=== PATIENT | male | born 1970 | race Caucasian/White ===

== ENCOUNTER 2020-08-11 17:00 | Inpatient (IN) | payer MEDICARE, SELFPAY ==
[2020-08-11 17:03] VITALS: BP 192/121; PULSE 80; RESP 18; TEMP 36.5; O2SAT 97; BMI 34.0
--- NOTE | 2020-08-11 17:36 | ED_ITS ---
Documented by User: JORGE Bang 08/12/20 01:48 HPI - Psych General: Chief Complaint: Psychiatric Symptoms Stated Complaint: AMS Time Seen by Provider: 08/11/20 17:21 History of Present Illness: HPI Narrative: Patient is a 50-year-old male who comes to the ED with SI. Patient does not have any history of psychiatric disorder or on any psych meds. He says for the past month he has been hearing and seeing things. He says that people he knows around town say that he is a child molester. He now hears voices telling him that he is a child molester. He also says he sees people that are not there. Endorses not sleeping much recently and not having a lot of energy and motivation throughout the day. He states he has been distant from his family because he is worried that he skin a snap and being mean. Denies HI. He says that he is now thinking of suicide who has thought about crashing her car at high-speed and potentially getting a gun and shooting himself. Patient says he wants these thoughts to go away any needs help. Family history?mother?schizophrenia. Associated symptoms: Reports auditory hallucinations, visual hallucinations, depression and suicidal ideation; Deny homicidal ideation Review of Systems Const: Denies: fever(s), chills or fatigue Eyes: Denies: change in vision or eye discomfort ENMT: Denies: throat pain, odynophagia, nasal discharge or nasal congestion Card: Denies: chest pain, palpitations, edema, swelling of feet/ankles, dyspnea on exertion or orthopnea Resp: Denies: dyspnea, productive cough or non-productive cough GI: Denies: abdominal pain, nausea, vomiting, diarrhea, constipation or hematochezia : Denies: flank pain, difficulty urinating, dysuria or hematuria Musc: Denies: neck pain, back pain or extremity swelling Skin/Breast: Denies: rash or new lesions Neuro: Denies: headache(s), numbness in extremities or weakness in extremities Psych: Reports: depression, sleeping less, irritability, visual hallucinations, auditory hallucinations and suicidal ideation; Denies: homicidal ideation Physical Exam Const: COMMON NORMALS: patient oriented x3 and alert GENERAL APPEARANCE: cooperative and comfortable HENMT: COMMON NORMALS: normocephalic HEAD & SCALP: normocephalic MOUTH: Normal oral and palatal mucosa present THROAT: posterior oropharynx normal and uvula midline Eye: COMMON NORMALS: Equal, round and reactive pupils present PUPIL: Yes Equal, round and reactive pupils present Neck/C-Spine: COMMON NORMALS: supple GENERAL: Yes normal visual inspection Resp: COMMON NORMALS: normal respiratory effort, No retractions, No use of accessory muscles and clear to auscultation bilaterally EFFORT & INSPECTION: No tachypneic and No respiratory distress AUSCULTATION: clear to auscultation bilaterally and wheezes expiratory wheezes and throughout Cardio: COMMON NORMALS: regular rate, regular rhythm, S1 normal heart sound present, S2 normal heart sound present, No gallops present (Cardio), No clicks present (Cardio), No murmurs present (Cardio) and Peripheral pulses 2+ throughout RATE: regular rate RHYTHM: regular rhythm HEART SOUNDS: S1 normal heart sound present and S2 normal heart sound present PERIPHERAL PULSES: Peripheral pulses 2+ throughout GI: COMMON NORMALS: Normal to inspection, nondistended, normoactive bowel sounds present, Soft to palpation, non-tender and no masses PALPATION: Yes Soft to palpation : COMMON NORMALS: Yes no CVA tenderness BLADDER/KIDNEY EXAM: Yes no CVA tenderness Back/Pelvis: COMMON NORMALS: no CVA tenderness Extremity: COMMON NORMALS: normal to inspection and no pedal edema Neuro: COMMON NORMALS: patient oriented x3 and moves all extremities SENSORIUM/ORIENTATION: Yes alert Psych: COMMON NORMALS: Normal thought process present and speech normal APPEARANCE: Yes grossly normal ATTITUDE: Yes calm ACTIVITY/MOTOR BEHAVIOR: Yes appropriate eye contact SPEECH: Yes normal speech MOOD & AFFECT: Yes depressed mood and Yes tearful THOUGHT PROCESS: Normal thought process present THOUGHT CONTENT: Yes Suicidality present (He has been thinking about shooting himself or driving car high-speed and c), No Homicidality present and Yes Hallucination(s) present auditory (Hears voices in his head telling him that is Serafin Ayala) and visual (He sees people that are not there) ATTENTION/CONCENTRATION: Yes attention grossly intact and Yes concentration grossly intact MEMORY/COGNITION: Yes memory grossly intact and Yes cognition grossly intact INSIGHT: Fair insight present (Psych) JUDGEMENT: Fair judgement present (Psych) Skin: GENERAL SKIN EXAM: dry skin MDM - Psych Lab Data: Labs: Lab Results 08/11/20 08/11/20 08/11/20 Range/Units 17:53 17:53 18:00 WBC 10.2 H (4.0-10.0) 10^3/ uL RBC 4.72 (4.1-5.3) 10^6/u L Hgb 15.1 (11.7-16.6) g/dL Hct 44.3 (42.0-52.0) % MCV 93.9 (80-94) fL MCH 32.0 (28.0-34.0) pg MCHC 34.1 (30.0-36.0) g/dL RDW 12.1 (12.1-15.1) % Plt Count 303 (130-400) 10^3/c mm MPV 10.0 (7.4-10.4) fL Neut % (Auto) 67.2 % Lymph % (Auto) 24.1 % [place] % (Auto) 5.7 % Eos % (Auto) 2.3 % Baso % (Auto) 0.5 % Neut # (Auto) 6.88 (1.8-7.7) 10^3/u L Lymph # (Auto) 2.5 (0.8-4.8) 10^3/u L [place] # (Auto) 0.6 (0.2-0.9) 10^3/u L Eos # (Auto) 0.2 (0.0-0.8) 10^3/u L Baso # (Auto) 0.1 (0.0-0.1) 10^3/u L Nucleated RBC % (a uto) 0 % Nucleated RBCs # 0.0 /100WBC Sodium (136-145) mmol/L Potassium (3.5-5.1) mmol/L Chloride (98-107) mmol/L Carbon Dioxide (22-29) mmol/L Anion Gap (5-19) BUN (6-20) mg/dL Creatinine (0.7-1.2) mg/dL GFR Calculation (90-130) mL/min Glucose (65-115) mg/dL Calculated Osmolal ity (285-295) mOsm/k g Calcium (8.5-10.5) mg/dL Total Bilirubin (0.15-1.2) mg/dL AST (0-40) U/L ALT (0-41) U/L Alkaline Phosphata se (40-130) IU/L Total Protein (6.6-8.7) g/dL Albumin (3.5-5.2) g/dL Globulin (1.3-4.6) g/dL Urine Color Yellow (Yellow) Urine Appearance Clear (CLEAR) Urine pH 5 (5-7) Ur Specific Gravit y 1.020 (1.005-1.030) Urine Protein Neg (Negative) Urine Glucose (UA) Norm (Normal) Urine Ketones Negative (Negative) Urine Blood Neg (Negative) Urine Nitrate Negative (Negative) Urine Bilirubin Neg (Negative) Urine Urobilinogen 1 H (Negative) mg/dL Ur Leukocyte Kailey ase Negative (Negative) Salicylates (3-10) mg/dL Urine Opiates Scre en Negative (Negative) ng/mL Acetaminophen (10-30) ug/mL Ur Barbiturates Sc reen Negative (Negative) ng/mL Ur Phencyclidine S crn Negative (Negative) ng/mL Ur Amphetamines Sc reen Negative (Negative) ng/mL U Benzodiazepines Scrn Negative (Negative) ng/mL Urine Cocaine Scre en Negative (Negative) ng/mL U Marijuana (THC) Screen Negative (Negative) ng/mL Ethyl Alcohol (0-10) mg/dL 08/11/20 Range/Units 18:00 WBC (4.0-10.0) 10^3/ uL RBC (4.1-5.3) 10^6/u L Hgb (11.7-16.6) g/dL Hct (42.0-52.0) % MCV (80-94) fL MCH (28.0-34.0) pg MCHC (30.0-36.0) g/dL RDW (12.1-15.1) % Plt Count (130-400) 10^3/c mm MPV (7.4-10.4) fL Neut % (Auto) % Lymph % (Auto) % [place] % (Auto) % Eos % (Auto) % Baso % (Auto) % Neut # (Auto) (1.8-7.7) 10^3/u L Lymph # (Auto) (0.8-4.8) 10^3/u L [place] # (Auto) (0.2-0.9) 10^3/u L Eos # (Auto) (0.0-0.8) 10^3/u L Baso # (Auto) (0.0-0.1) 10^3/u L Nucleated RBC % (a uto) % Nucleated RBCs # /100WBC Sodium 140 (136-145) mmol/L Potassium 3.7 (3.5-5.1) mmol/L Chloride 106 (98-107) mmol/L Carbon Dioxide 25 (22-29) mmol/L Anion Gap 12.7 (5-19) BUN 15 (6-20) mg/dL Creatinine 0.8 (0.7-1.2) mg/dL GFR Calculation 103.2 (90-130) mL/min Glucose 98 (65-115) mg/dL Calculated Osmolal ity 291 (285-295) mOsm/k g Calcium 8.9 (8.5-10.5) mg/dL Total Bilirubin 0.2 (0.15-1.2) mg/dL AST 10 (0-40) U/L ALT 12 (0-41) U/L Alkaline Phosphata se 118 (40-130) IU/L Total Protein 7.8 (6.6-8.7) g/dL Albumin 4.1 (3.5-5.2) g/dL Globulin 3.7 (1.3-4.6) g/dL Urine Color (Yellow) Urine Appearance (CLEAR) Urine pH (5-7) Ur Specific Gravit y (1.005-1.030) Urine Protein (Negative) Urine Glucose (UA) (Normal) Urine Ketones (Negative) Urine Blood (Negative) Urine Nitrate (Negative) Urine Bilirubin (Negative) Urine Urobilinogen (Negative) mg/dL Ur Leukocyte Kailey ase (Negative) Salicylates < 0.3 L (3-10) mg/dL Urine Opiates Scre en (Negative) ng/mL Acetaminophen < 5.0 L (10-30) ug/mL Ur Barbiturates Sc reen (Negative) ng/mL Ur Phencyclidine S crn (Negative) ng/mL Ur Amphetamines Sc reen (Negative) ng/mL U Benzodiazepines Scrn (Negative) ng/mL Urine Cocaine Scre en (Negative) ng/mL U Marijuana (THC) Screen (Negative) ng/mL Ethyl Alcohol < 10 (0-10) mg/dL Discharge Plan Discharge Admit Provider: Mark Wren Condition: Stable Coding Level of Care Code ED Customer Care Consultant for Chg Fwd Exam Comprehensive Documented by User: Monica Sandsney 08/11/20 19:18 HPI - Psych General: Chief Complaint: Psychiatric Symptoms Stated Complaint: AMS Time Seen by Provider: 08/11/20 17:21 MDM - Psych MDM Narrative: Medical decision making narrative: The case has been reviewed with me by JORGE Temple. He is already spoken with Dr. Wren. I agree with her assessment and plan. Patient will be voluntarily admitted but an affidavit has been placed on the chart should the patient try to leave and need to be held. Patient is cooperative this time. On exam I do hear wheezing he has history of COPD. He does not to be in any distress is not hypercapnic but I will go and add a DuoNeb treatment while he is here. Lab Data: Labs: Lab Results 08/11/20 08/11/20 08/11/20 Range/Units 17:53 17:53 18:00 WBC 10.2 H (4.0-10.0) 10^3/ uL RBC 4.72 (4.1-5.3) 10^6/u L Hgb 15.1 (11.7-16.6) g/dL Hct 44.3 (42.0-52.0) % MCV 93.9 (80-94) fL MCH 32.0 (28.0-34.0) pg MCHC 34.1 (30.0-36.0) g/dL RDW 12.1 (12.1-15.1) % Plt Count 303 (130-400) 10^3/c mm MPV 10.0 (7.4-10.4) fL Neut % (Auto) 67.2 % Lymph % (Auto) 24.1 % [place] % (Auto) 5.7 % Eos % (Auto) 2.3 % Baso % (Auto) 0.5 % Neut # (Auto) 6.88 (1.8-7.7) 10^3/u L Lymph # (Auto) 2.5 (0.8-4.8) 10^3/u L [place] # (Auto) 0.6 (0.2-0.9) 10^3/u L Eos # (Auto) 0.2 (0.0-0.8) 10^3/u L Baso # (Auto) 0.1 (0.0-0.1) 10^3/u L Nucleated RBC % (a uto) 0 % Nucleated RBCs # 0.0 /100WBC Sodium (136-145) mmol/L Potassium (3.5-5.1) mmol/L Chloride (98-107) mmol/L Carbon Dioxide (22-29) mmol/L Anion Gap (5-19) BUN (6-20) mg/dL Creatinine (0.7-1.2) mg/dL GFR Calculation (90-130) mL/min Glucose (65-115) mg/dL Calculated Osmolal ity (285-295) mOsm/k g Calcium (8.5-10.5) mg/dL Total Bilirubin (0.15-1.2) mg/dL AST (0-40) U/L ALT (0-41) U/L Alkaline Phosphata se (40-130) IU/L Total Protein (6.6-8.7) g/dL Albumin (3.5-5.2) g/dL Globulin (1.3-4.6) g/dL Urine Color Yellow (Yellow) Urine Appearance Clear (CLEAR) Urine pH 5 (5-7) Ur Specific Gravit y 1.020 (1.005-1.030) Urine Protein Neg (Negative) Urine Glucose (UA) Norm (Normal) Urine Ketones Negative (Negative) Urine Blood Neg (Negative) Urine Nitrate Negative (Negative) Urine Bilirubin Neg (Negative) Urine Urobilinogen 1 H (Negative) mg/dL Ur Leukocyte Kailey ase Negative (Negative) Salicylates (3-10) mg/dL Urine Opiates Scre en Negative (Negative) ng/mL Acetaminophen (10-30) ug/mL Ur Barbiturates Sc reen Negative (Negative) ng/mL Ur Phencyclidine S crn Negative (Negative) ng/mL Ur Amphetamines Sc reen Negative (Negative) ng/mL U Benzodiazepines Scrn Negative (Negative) ng/mL Urine Cocaine Scre en Negative (Negative) ng/mL U Marijuana (THC) Screen Negative (Negative) ng/mL Ethyl Alcohol (0-10) mg/dL 08/11/20 Range/Units 18:00 WBC (4.0-10.0) 10^3/ uL RBC (4.1-5.3) 10^6/u L Hgb (11.7-16.6) g/dL Hct (42.0-52.0) % MCV (80-94) fL MCH (28.0-34.0) pg MCHC (30.0-36.0) g/dL RDW (12.1-15.1) % Plt Count (130-400) 10^3/c mm MPV (7.4-10.4) fL Neut % (Auto) % Lymph % (Auto) % [place] % (Auto) % Eos % (Auto) % Baso % (Auto) % Neut # (Auto) (1.8-7.7) 10^3/u L Lymph # (Auto) (0.8-4.8) 10^3/u L [place] # (Auto) (0.2-0.9) 10^3/u L Eos # (Auto) (0.0-0.8) 10^3/u L Baso # (Auto) (0.0-0.1) 10^3/u L Nucleated RBC % (a uto) % Nucleated RBCs # /100WBC Sodium 140 (136-145) mmol/L Potassium 3.7 (3.5-5.1) mmol/L Chloride 106 (98-107) mmol/L Carbon Dioxide 25 (22-29) mmol/L Anion Gap 12.7 (5-19) BUN 15 (6-20) mg/dL Creatinine 0.8 (0.7-1.2) mg/dL GFR Calculation 103.2 (90-130) mL/min Glucose 98 (65-115) mg/dL Calculated Osmolal ity 291 (285-295) mOsm/k g Calcium 8.9 (8.5-10.5) mg/dL Total Bilirubin 0.2 (0.15-1.2) mg/dL AST 10 (0-40) U/L ALT 12 (0-41) U/L Alkaline Phosphata se 118 (40-130) IU/L Total Protein 7.8 (6.6-8.7) g/dL Albumin 4.1 (3.5-5.2) g/dL Globulin 3.7 (1.3-4.6) g/dL Urine Color (Yellow) Urine Appearance (CLEAR) Urine pH (5-7) Ur Specific Gravit y (1.005-1.030) Urine Protein (Negative) Urine Glucose (UA) (Normal) Urine Ketones (Negative) Urine Blood (Negative) Urine Nitrate (Negative) Urine Bilirubin (Negative) Urine Urobilinogen (Negative) mg/dL Ur Leukocyte Kailey ase (Negative) Salicylates < 0.3 L (3-10) mg/dL Urine Opiates Scre en (Negative) ng/mL Acetaminophen < 5.0 L (10-30) ug/mL Ur Barbiturates Sc reen (Negative) ng/mL Ur Phencyclidine S crn (Negative) ng/mL Ur Amphetamines Sc reen (Negative) ng/mL U Benzodiazepines Scrn (Negative) ng/mL Urine Cocaine Scre en (Negative) ng/mL U Marijuana (THC) Screen (Negative) ng/mL Ethyl Alcohol < 10 (0-10) mg/dL Discharge Plan Discharge Admit Provider: Mark Wren Condition: Stable Coding Level of Care Code ED Customer Care Consultant for Vong Fwd Exam Comprehensive
[2020-08-11 18:09] LABS: Add Urine Microscopic? NO
[2020-08-11 18:24] LABS: Basophils # 0.1 10^3/uL (0.0-0.1); Basophils % 0.5 %; Eosinophils # 0.2 10^3/uL (0.0-0.8); Eosinophils % 2.3 %; Hematocrit 44.3 % (42.0-52.0); Hemoglobin 15.1 g/dL (11.7-16.6); Lymphocytes # 2.5 10^3/uL (0.8-4.8); Lymphocytes % 24.1 %; Mean Corpuscular HGB Conc 34.1 g/dL (30.0-36.0); Mean Corpuscular Volume 93.9 fL (80-94); Monocytes # 0.6 10^3/uL (0.2-0.9); Monocytes % 5.7 %; Neutrophils # 6.88 10^3/uL (1.8-7.7); Neutrophils % 67.2 %; Nucleated Red Blood Cells % 0 %; Platelet Count 303 10^3/cmm (130-400); Red Blood Count 4.72 10^6/uL (4.1-5.3); Red Cell Distribution Width 12.1 % (12.1-15.1); White Blood Count 10.2 10^3/uL (4.0-10.0)
[2020-08-11 18:41] LABS: Alanine Aminotransferase 12 U/L (0-41); Albumin Level 4.1 g/dL (3.5-5.2); Alkaline Phosphatase 118 IU/L (40-130); Anion Gap 12.7 (5-19); Aspartate Amino Transferase 10 U/L (0-40); Blood Urea Nitrogen 15 mg/dL (6-20); Calcium 8.9 mg/dL (8.5-10.5); Carbon Dioxide 25 mmol/L (22-29); Chloride 106 mmol/L (98-107); Globulin 3.7 g/dL (1.3-4.6); Glomerular Filtration Rate 103.2 mL/min (90-130); Glucose 98 mg/dL (65-115); Osmolality Calculated 291 mOsm/kg (285-295); Potassium 3.7 mmol/L (3.5-5.1); Sodium 140 mmol/L (136-145); Total Bilirubin 0.2 mg/dL (0.15-1.2); Total Protein 7.8 g/dL (6.6-8.7)
[2020-08-11 18:42] LABS: Acetaminophen < 5.0 ug/mL (10-30); Alcohol Level < 10 mg/dL (0-10); Salicylate < 0.3 mg/dL (3-10)
[2020-08-11 18:42] LABS: Bilirubin Urine Neg (Negative); Blood Urine Neg (Negative); Glucose Urine UA Norm (Normal); Ketones Urine Negative (Negative); Leukocyte Esterase Urine Negative (Negative); Nitrate Urine Negative (Negative); Protein Urine Neg (Negative); Urine Appearance Clear (CLEAR); Urine Color Yellow (Yellow); Urobilinogen Urine 1 mg/dL (Negative); pH Urine 5 (5-7)
[2020-08-11 18:45] LABS: Amphetamines Screen Urine Negative (Negative); Barbiturates Screen Urine Negative (Negative); Benzodiazepines Screen Urine Negative (Negative); Cocaine Screen Urine Negative (Negative); Opiate Screen Urine Negative (Negative); PCP Screen Urine Negative (Negative); THC Screen Urine Negative (Negative)
--- NOTE | 2020-08-11 19:02 | PC.NURSE ---
patient report received from Miguel labor economics teacher and care transferred to MALKA Van
[2020-08-11 19:30] VITALS: PULSE 78; RESP 18; O2SAT 97
[2020-08-11] MEDS: ipratropium-albuterol 3 mL Neb INHALATION (19:30)
[2020-08-11 19:38] VITALS: PULSE 80
[2020-08-11 20:36] VITALS: PULSE 74; RESP 16; O2SAT 92
[2020-08-11 20:47] VITALS: BP 125/81; PULSE 73; RESP 17; O2SAT 93
--- NOTE | 2020-08-11 20:49 | PC.NURSE ---
CALLED REPORT TO NPU, NPU REQUESTED A COVID TEST BEFORE PATIENT BROUGHT TO FLOOR.
[2020-08-11 21:08] LABS: SARS Covid-2 Antigen Negative (Negative)
[2020-08-11 21:57] VITALS: BP 143/103; PULSE 63; RESP 17; TEMP 36.4; O2SAT 96
[2020-08-11] MEDS: hyDROXYzine 25 mg Capsule 50 MG PO (22:39)
[2020-08-11] MEDS: nicotine 2 mg Gum BUCCAL (22:40)
[2020-08-11] MEDS: trazodone 50 mg Tablet PO (22:40)
[2020-08-12 06:00] VITALS: BP 119/72; PULSE 53; RESP 16; TEMP 36.7; O2SAT 96
[2020-08-12] MEDS: cetylpyridinium Lozenge 1 EACH MUCOUS MEM ×2 (11:16→15:52)
--- NOTE | 2020-08-12 11:17 | PC.NURSE ---
PRN CEPACOL 1 LOZENGE GIVEN PO PER PT C/O SORE THROAT. WILL CONT TO MONITOR
[2020-08-12 14:00] VITALS: BP 132/87; PULSE 70; RESP 20; O2SAT 92
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
[2020-08-12] MEDS: albuterol 8 gm MDI 2 PUFF INHALATION ×2 (15:10→22:45)
[2020-08-12 15:16] VITALS: PULSE 89; RESP 20; O2SAT 88
[2020-08-12 15:18] VITALS: PULSE 88; RESP 20; O2SAT 91
[2020-08-12] MEDS: nicotine 2 mg Gum BUCCAL (20:27)
[2020-08-12] MEDS: trazodone 50 mg Tablet PO (21:10)
[2020-08-12] MEDS: hyDROXYzine 25 mg Capsule 50 MG PO (21:10)
--- NOTE | 2020-08-12 21:12 | PC.NURSE ---
visteril/trazdone 50mg PO visteril and 50mg trazodone given for anxiety and sleep. will continue to monitor.
[2020-08-12 21:56] VITALS: BP 132/96; PULSE 61; RESP 18; TEMP 36.4; O2SAT 96
[2020-08-12 22:46] VITALS: PULSE 78; RESP 18; O2SAT 96
--- NOTE | 2020-08-12 23:22 | PC.NURSE ---
PM ASSESSMENT DENIES VH/AH/HI/SI. PT IS WITH A SITTER FOR OXYGEN USE. CURRENTLY ON 3 LITERS. HE IS TALKATIVE AND PLEASANT.
[2020-08-13] VITALS (8 sets, daily range): BP systolic 129–164; BP diastolic 82–85; PULSE 50–88; RESP 16–18; TEMP 36.6–37.1; O2SAT 89–99
--- NOTE | 2020-08-13 02:20 | PC.NURSE ---
Pt needs and requests transfer d/t insurance issues.. He is out of network in this facility
[2020-08-13] MEDS: albuterol 8 gm MDI 2 PUFF INHALATION ×2 (07:52→11:39)
[2020-08-13] MEDS: ipratropium-albuterol 3 mL Neb INHALATION ×2 (07:52→19:54)
[2020-08-13] MEDS: ARIPiprazole 10 mg Tablet PO (09:26)
--- NOTE | 2020-08-13 16:36 | P.PN_ITS ---
Subjective NPU Subjective: Interval history: Lenny presents today reporting that the Abilify appears to be working well. He reports that his symptoms and feelings about negative things is diminishing. With staff however failed attempt at getting him transferred today. He understood that the main challenge appears to be him being on CPAP at night and the his hospital systems that his insurance has recommended not allowing for the use of his CPAP. We discussed the option of continuing to look for bed options for checking to see if he was feeling better again tomorrow as he feels better today and if he is safe allowing him to discharge. He is at risk, benefits and alternatives of different options and he understood and agreed to proceed as is documented in this note. Mental Status Exam MSE Comments: This is a obese white male with limited dress, grooming and eye contact. No abnormal movements except for mild psychomotor agitation. Cooperative with exam in mild distress. Speech was decreased rate and volume. Mood described as a little better, affect congruent. Thought process organized. Thought content: Patient denied suicidal or homicidal ideation, there were no delusions noted but paranoia which he reports is resolving was reported, he endorses decreases in auditory and visual hallucinations. Attention and concentration were improving and memory appeared reliable but none were formally tested. He is alert and oriented x3. Insight and judgment are improving, impulse control is impaired. Vitals/I&O/Wt Last Vital Signs Temp 97.9 F 08/13/20 22:00 Pulse 68 08/13/20 22:00 Resp 18 08/13/20 22:00 BP 143/84 08/13/20 22:00 Pulse Ox 99 08/13/20 22:00 Data NPU : 08/11/20 18:00 08/11/20 18:00 A&P Additional A&P Information (1) Psychosis: (2) PTSD (post-traumatic stress disorder): Additional A&P Information This is a 50-year-old white male with a long history of trauma and a past history of addiction who presents with auditory hallucinations and anxiety and reporting a desire to have medication to help with his intrusive thoughts. 1. Continue current medications. Except: Possibly consider increasing Abilify to 15 mg in the morning 2. Continue every 15 minute checks for safety 3. Encourage individual, group and milieu therapy. 4. We will connect patient with outpatient therapy, and consider discharge tomorrow. Involuntary Hold Information 96 Hour Hold: 96 Hour Involuntary Admission: No Attestations NPU Medical Necessity Statement*: Inpatient hospitalization is medically necessary and the clinically appropriate length of time. We will monitor medications and make changes as indicated. Likely length of stay one. Days. Coding Level of Care Code Acute Product Safety Specialist for Mike Tripp
[2020-08-13] MEDS: nicotine 2 mg Gum BUCCAL (21:20)
[2020-08-13] MEDS: hyDROXYzine 25 mg Capsule 50 MG PO (21:20)
[2020-08-14 05:50] VITALS: BP 149/79; PULSE 60; RESP 17; TEMP 36.7; O2SAT 96
[2020-08-14 06:25] VITALS: PULSE 70; RESP 18; O2SAT 95
[2020-08-14] MEDS: ipratropium-albuterol 3 mL Neb INHALATION (06:25)
[2020-08-14] MEDS: ARIPiprazole 10 mg Tablet PO (09:07)
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
[2020-08-14] MEDS: albuterol 8 gm MDI 2 PUFF INHALATION (11:31)
[2020-08-14 11:36] VITALS: PULSE 81; RESP 16; O2SAT 96
[2020-08-14 11:37] VITALS: BP 124/88; PULSE 70; RESP 18; O2SAT 95
[2020-08-14 11:38] VITALS: PULSE 80
== END 2020-08-14 13:56 | disposition home or self-care (01) | DRG 885 ==
LOC: ER 19:33 → NP 22:03
PROVIDERS: Family Medicine; Admitting Provider Psychiatry & Neurology Psychiatry; Emergency Provider Emergency Medicine; Visit Provider Psychiatry & Neurology Psychiatry
DX: F29 Unspecified psychosis not due to a substance or known physiological condition (principal); R45.851 Suicidal ideations; F32.9 Major depressive disorder, single episode, unspecified; F17.210 Nicotine dependence, cigarettes, uncomplicated; F43.10 Post-traumatic stress disorder, unspecified
CPT/HCPCS: 12345; 80053; 80306; 80307; 81003; 85025; 87426; 94640; 99284; J3535

== ENCOUNTER → 2021-07-14 13:26 | Outpatient (BNVA) | payer MEDICARE, SELFPAY | PROVIDERS: Visit Provider Emergency Medicine | DX: J44.9 Chronic obstructive pulmonary disease, unspecified (principal); F17.200 Nicotine dependence, unspecified, uncomplicated | CPT/HCPCS: 71046 ==

== ENCOUNTER → 2021-11-17 10:06 | Outpatient (BNVA) | payer MEDICARE, SELFPAY | PROVIDERS: Visit Provider Psychiatry & Neurology Psychiatry | DX: Z03.89 Encounter for observation for other suspected diseases and conditions ruled out (principal); Z79.899 Other long term (current) drug therapy; F33.3 Major depressive disorder, recurrent, severe with psychotic symptoms | CPT/HCPCS: 80053; 80061; 80164; 83036; 84443 ==

== ENCOUNTER → 2023-12-27 10:43 | Outpatient (BNVA) | payer MEDICARE, SELFPAY | PROVIDERS: PCP Nurse Practitioner Family; Visit Provider Surgery | DX: Z12.11 Encounter for screening for malignant neoplasm of colon (principal) | CPT/HCPCS: 99024; 99203 ==

== ENCOUNTER 2024-02-13 05:58 | Day surgery (SDC) | payer MEDICARE, SELFPAY ==
--- NOTE | 2024-02-13 06:11 | W.PM.OPSFHP ---
Same Day Surgery H&P Indication for Procedure/HPI DATE OF PROCEDURE: February 13, 2024 CHIEF COMPLAINT/INDICATIONFOR SURGICAL PROCEDURE: encounter for screening colonoscopy PREOP DIAGNOSIS: encounter for screening colonoscopy PLANNED PROCEDURE: Operation Date: 02/13/24 07:00 Proposed Procedures p Colonoscopy 63966 , G0121 , Z12.11(Not Applicable) - Arnulfo Joseph MD Medications/Allergies* Home Medications Medication Instructions Recorded Confirmed Type budesonide 1 mg/2 mL suspension 1 mg inhalation BID 02/08/24 02/08/24 History for nebulization hydroxyzine HCl 25 mg tablet 25 mg PO TID PRN Agitation 02/08/24 02/08/24 History losartan 50 mg tablet 50 mg PO DAILY 02/08/24 02/08/24 History sertraline 100 mg tablet 100 mg PO DAILY 02/08/24 02/08/24 History Allergies/Adverse Reactions Allergy/AdvReac Type Severity Reaction Status Date / Time Penicillins Allergy Unknown Verified 02/13/24 06:10 Pertinent History/Comorbid Conditions* Medical History (Updated 03/08/23 @ 08:42 by Beatriz Gardner) Excessive cerumen in both ear canals MDD (major depressive disorder), recurrent, severe, with psychosis Family History (Updated 12/27/23 @ 11:21 by RONDA Santacruz) Mother Colon cancer Mother Diabetes Unknown Cancer Unknown Social History Smoking and tobacco/nicotine status: former use of tobacco/nicotine Current gender identity: Male Pertinent Exam Findings alert, oriented x 3 and clear to auscultation bilaterally Recommendations Surgery/Procedure today Coding Level of Care Code Acute Code for Chg Fwd
[2024-02-13 06:16] VITALS: BP 161/100; PULSE 78; RESP 18; TEMP 36.6; O2SAT 97; BMI 29.5
[2024-02-13] MEDS: sodium chloride 0.9% 1,000 ML 30 ML IV (06:43)
--- NOTE | 2024-02-13 06:46 | ANES.PREANE2 ---
Pre-Anesthetic Assessment Height/Weight: Height 1.75 m Weight 90.718 kg Temp Pulse Resp BP Pulse Ox O2 Del Method 97.9 F 78 18 161/100 97 Room Air 02/13/24 06:16 02/13/24 06:16 02/13/24 06:16 02/13/24 06:16 02/13/24 06:16 02/13/24 06:16 Preop Diagnosis: encounter for screening colonoscopy Operation Date: 02/13/24 07:00 Proposed Procedures p Colonoscopy 77481 , G0121 , Z12.11(Not Applicable) - Arnulfo Joseph MD Was Beta Emily taken within 24 hours: N/A Was Clonidine taken within 24 hours: N/A Last intake: Intake Last Liquid Date 02/12/24 Last Liquid Time 23:45 Last Solid Date 02/11/24 Last Solid Time 18:00 Social No alcohol and No tobacco Exam alert and oriented x 3 Airway Submandibular: within normal limits Cervical ROM: within normal limits Mallampati: Class II Dentition: other Comments: Comments: missing History/ROS No significant history except as noted Pulmonary Asthma, Chronic Obstructive Pulmonary Disease and Sleep Apnea (does not use CPAP) CV/HEM Hypertension None reported Hepatic None reported GI None reported Metabolic Hyperlipidemia [facility] Scoliosis Neuropsych Anxiety, Bipolar (major depressive disorder) and Transient Ischemic Attack ( mini stroke ) Anesthetic Plan ASA status: 3 Anesthesia: MAC Risk of > 500 ml blood loss (7ml/kg in children): Yes, adequate IV access and fluids planned Medications/Allergies Home Medications Medication Instructions Recorded Confirmed Last Taken Type albuterol sulfate 2.5 mg/3 mL 2.5 mg (3 mL) inhalation Q6H #150 07/14/21 02/13/24 02/11/24 Rx (0.083 %) solution for nebulization vials nebulizers #1 ea 07/14/21 02/08/24 Unknown Rx aripiprazole 15 mg tablet 15 mg PO DAILY 30 days #30 tabs 03/08/22 02/13/24 02/11/24 Rx budesonide 1 mg/2 mL suspension 1 mg inhalation BID 02/08/24 02/13/24 02/11/24 History for nebulization hydroxyzine HCl 25 mg tablet 25 mg PO TID PRN Agitation 02/08/24 02/13/24 02/11/24 History losartan 50 mg tablet 50 mg PO DAILY 02/08/24 02/13/24 02/11/24 History sertraline 100 mg tablet 100 mg PO DAILY 02/08/24 02/13/24 02/11/24 History Allergies Allergy/AdvReac Type Severity Reaction Status Date / Time Penicillins Allergy Unknown Verified 02/13/24 06:10 Current Medications Generic Name Dose Route Start Last Admin Trade Name Freq PRN Reason Stop Dose Admin Sodium Chloride 1,000 mls @ 30 mls/hr 02/13/24 06:15 02/13/24 06:43 Sodium Chloride 0.9% IV 30 mls/hr .Q24H ARNOLD Administration PFSH Anesthesia Medical History Excessive cerumen in both ear canals MDD (major depressive disorder), recurrent, severe, with psychosis Family History (Updated 12/27/23 @ 11:[address]) Mother Colon cancer Unknown Cancer Diabetes Social History Smoking and tobacco/nicotine status: former use of tobacco/nicotine Current gender identity: Male Data Anesthesia Cardiac Studies: No Data to Display
[2024-02-13 07:24] VITALS: BP 100/53; PULSE 67; RESP 18; TEMP 36.2; O2SAT 94
[2024-02-13 07:36] VITALS: BP 116/97; PULSE 67; RESP 18; O2SAT 96
--- NOTE | 2024-02-13 13:35 | P.ANESPOST_ITS ---
Inpatient post-anesthesia follow up: Vital signs: Temperature 97.1 F Pulse Rate 67 Respiratory Rate 18 Blood Pressure 116/97 Pulse Oximetry 96 Oxygen Delivery Me thod Room Air Oxygen Flow Rate Fraction of Inspir ed Oxygen Hydration adequate: Yes Nausea and vomiting: No Pain level: con trolled Mental status: Baseline Additional Comments: no apparent anethestic complications noted
== END 2024-02-13 07:50 | disposition home or self-care (01) ==
PROVIDERS: PCP Nurse Practitioner Family; Visit Provider Surgery
PROC: 0DJD8ZZ Inspection of Lower Intestinal Tract, Via Natural or Artificial Opening Endoscopic (ICD-10-PCS; CPT 45378; principal; 2024-02-13 07:00)
DX: Z12.11 Encounter for screening for malignant neoplasm of colon (principal); K57.30 Diverticulosis of large intestine without perforation or abscess without bleeding; Z87.891 Personal history of nicotine dependence; J45.909 Unspecified asthma, uncomplicated; I10 Essential (primary) hypertension; E78.5 Hyperlipidemia, unspecified; Z86.73 Personal history of transient ischemic attack (TIA), and cerebral infarction without residual deficits
CPT/HCPCS: G0121; J2704; J7030